=== PATIENT | male | born 1940 | race Caucasian/White ===

== ENCOUNTER 2016-06-09 09:01 | Outpatient (CLI) | payer BC, OTHER | END 2016-06-09 09:02 | disposition home or self-care (01) | DX: I48.0 Paroxysmal atrial fibrillation (principal); E11.9 Type 2 diabetes mellitus without complications; I25.10 Atherosclerotic heart disease of native coronary artery without angina pectoris; I10 Essential (primary) hypertension; E78.5 Hyperlipidemia, unspecified; Z12.5 Encounter for screening for malignant neoplasm of prostate ==

== ENCOUNTER 2016-09-18 10:12 | Outpatient (CLI) | payer BC, MEDICARE, OTHER ==
[2016-09-18 19:19] LABS: BILIRUBIN,TOTAL 0.5 mg/dL (0.2-1.0); BUN - BLOOD UREA NITROGEN 25 mg/dL (6-20); CARBON DIOXIDE - CO2 25 mmol/L (21-32); CHLORIDE 105 mmol/L (101-111); CHOL/HDL RATIO 2.9 (<5.0); CHOLESTEROL 127 mg/dL; CREATININE 1.2 mg/dL (0.6-1.2); GFR - MDRD 59 (>89); GLUCOSE 106 mg/dL (70-100); HDL CHOLESTEROL 44 mg/dL; LDL/HDL RATIO 1.4 (<3.6); SODIUM 138 mmol/L (135-145); TOTAL PROTEIN 7.1 g/dL (6.7-8.2); TRIGLYCERIDES 98 mg/dL; VLDL CHOLESTEROL 20 mg/dL
[2016-09-18 20:10] LABS: HEMOGLOBIN A1C 0.58 g/dL
== END 2016-09-18 10:13 | disposition home or self-care (01) ==
LOC: LAB.F 10:12
PROVIDERS: ATTEND Family Medicine
DX: I48.0 Paroxysmal atrial fibrillation (principal); E11.9 Type 2 diabetes mellitus without complications; I10 Essential (primary) hypertension; Z12.5 Encounter for screening for malignant neoplasm of prostate; I25.10 Atherosclerotic heart disease of native coronary artery without angina pectoris; E78.5 Hyperlipidemia, unspecified
CPT/HCPCS: 36415; 80053; 80061; 83036; G0103; 84153

== ENCOUNTER 2017-03-16 08:00 | Outpatient (CLI) | payer OTHER, MEDICARE, BC | END 2017-03-16 08:01 | disposition home or self-care (01) | LOC: LAB.F 08:00 | PROVIDERS: ATTEND Internal Medicine | DX: E55.9 Vitamin D deficiency, unspecified (principal) | CPT/HCPCS: 36415; 82306 ==

== ENCOUNTER 2017-08-28 13:42 | Outpatient (CLI) | END 2017-08-28 13:43 | disposition home or self-care (01) ==

== ENCOUNTER 2018-02-12 14:09 | Outpatient (CLI) | payer OTHER, MEDICARE, BC ==
[2018-02-12 18:32] LABS: BUN - BLOOD UREA NITROGEN 16 mg/dL (6-20); CALCIUM 10.1 mg/dL (8.5-10.3); CARBON DIOXIDE - CO2 27 mmol/L (21-32); CHLORIDE 105 mmol/L (101-111); CHOL/HDL RATIO 2.4 (<5.0); CHOLESTEROL 133 mg/dL; CREATININE 1.3 mg/dL (0.6-1.2); GFR - MDRD 54 (>89); GLUCOSE 104 mg/dL (70-100); HDL CHOLESTEROL 56 mg/dL; LDL CHOLESTEROL,CALCULATED 61 mg/dL; LDL/HDL RATIO 1.1 (<3.6); SODIUM 138 mmol/L (135-145); VLDL CHOLESTEROL 16 mg/dL
[2018-02-12 18:33] LABS: HB2 TOTAL 16.2 g/dL; HEMOGLOBIN A1C 0.63 g/dL; HEMOGLOBIN A1C % 5.7 % (4.6-6.2)
[2018-02-12 18:41] LABS: CREATININE,URINE 267.2 mg/dL; MICROALBUM/CREATININE RATIO,UR 16.1 ug/mg (<30.0); MICROALBUMIN,URINE 4.3 mg/dL (0-300.0)
== END 2018-02-12 14:10 | disposition home or self-care (01) ==
LOC: LAB.F 14:09
PROVIDERS: ATTEND Family Medicine
DX: E11.9 Type 2 diabetes mellitus without complications (principal)
CPT/HCPCS: 36415; 80048; 80061; 82043; 82570; 83036; 83721

== ENCOUNTER 2020-10-04 16:34 | Outpatient (CLI) | payer OTHER, MEDICARE, BC | END 2020-10-04 16:35 | disposition home or self-care (01) | LOC: COV 16:34 | PROVIDERS: ATTEND Internal Medicine Cardiovascular Disease | DX: Z01.812 Encounter for preprocedural laboratory examination (principal); Z20.822 Contact with and (suspected) exposure to COVID-19 ==

== ENCOUNTER 2021-06-16 14:20 | Outpatient (CLI) | payer MEDICARE, OTHER, BC ==
[2021-06-16 20:00] LABS: BASOPHILS % (AUTO) 0.6 %; EOSINOPHILS # (AUTO) 0.1 10^3/uL (0.0-0.7); EOSINOPHILS % (AUTO) 1.8 %; HCT - HEMATOCRIT 37.3 % (42.0-52.0); HGB - HEMOGLOBIN 12.6 g/dL (14.0-18.0); LYMPHOCYTES # (AUTO) 1.7 10^3/uL (1.5-3.5); LYMPHOCYTES % (AUTO) 32.4 %; MEAN CORPUSCULAR HEMOGLOBIN 34.1 pg (27.0-31.0); MEAN CORPUSCULAR HGB CONC 33.8 g/dL (32.0-36.0); MEAN CORPUSCULAR VOLUME 101.1 fL (80.0-94.0); MONOCYTES # (AUTO) 0.4 10^3/uL (0.0-1.0); MONOCYTES % (AUTO) 8.2 %; NEUTROPHILS # (AUTO) 2.9 10^3/uL (1.5-6.6); NEUTROPHILS % (AUTO) 56.8 %; PLT - PLATELET COUNT 181 10^3/uL (130-450); RED BLOOD COUNT 3.69 10^6/uL (4.70-6.10); RED CELL DISTRIBUTION WIDTH 13.8 % (12.0-15.0); WHITE BLOOD COUNT 5.1 x10^3/uL (4.8-10.8)
[2021-06-16 20:24] LABS: ALBUMIN 4.2 g/dL (3.2-5.5); CALCIUM 10.2 mg/dL (8.5-10.3); CREATININE 1.8 mg/dL (0.6-1.2); POTASSIUM 4.1 mmol/L (3.5-5.0)
== END 2021-06-16 14:21 | disposition home or self-care (01) ==
LOC: LAB.S 14:20
PROVIDERS: ATTEND Internal Medicine Interventional Cardiology
DX: I25.10 Atherosclerotic heart disease of native coronary artery without angina pectoris (principal); I48.0 Paroxysmal atrial fibrillation
CPT/HCPCS: 36415; 80069; 85025

== ENCOUNTER 2021-08-03 13:26 | Outpatient (CLI) | payer OTHER, MEDICARE, BC ==
[2021-08-03 19:57] LABS: BASOPHILS % (AUTO) 0.7 %; EOSINOPHILS % (AUTO) 1.3 %; HCT - HEMATOCRIT 39.3 % (42.0-52.0); HGB - HEMOGLOBIN 12.6 g/dL (14.0-18.0); LYMPHOCYTES % (AUTO) 34.6 %; MEAN CORPUSCULAR HEMOGLOBIN 33.3 pg (27.0-31.0); MEAN CORPUSCULAR HGB CONC 32.1 g/dL (32.0-36.0); MEAN PLATELET VOLUME 11.6 fL (7.4-11.4); MONOCYTES % (AUTO) 9.3 %; NEUTROPHILS % (AUTO) 53.9 %; PLT - PLATELET COUNT 185 10^3/uL (130-450); RED BLOOD COUNT 3.78 10^6/uL (4.70-6.10); RED CELL DISTRIBUTION WIDTH 14.8 % (12.0-15.0); WHITE BLOOD COUNT 4.5 x10^3/uL (4.8-10.8)
[2021-08-03 20:08] LABS: ABNORMAL LYMPHS % (MANUAL) 0 %
[2021-08-03 20:11] LABS: ALBUMIN 4.1 g/dL (3.2-5.5); CALCIUM 10.4 mg/dL (8.5-10.3); CREATININE 1.6 mg/dL (0.6-1.2); INR 1.3 (0.8-1.2); POTASSIUM 4.4 mmol/L (3.5-5.0); PT - PROTHROMBIN TIME 14.9 secs (9.9-12.6)
[2021-08-03 21:07] LABS: BAND NEUTROPHILS % (MANUAL) 1 %; EOSINOPHILS # (MANUAL) 0.1 10^3/uL (0-0.7); LYMPHOCYTES # (MANUAL) 1.2 10^3/uL (1.5-3.5); LYMPHOCYTES % (MANUAL) 23 %; MONOCYTES # (MANUAL) 0.2 10^3/uL (0.0-1.0); RBC MORPHOLOGY (MULTIPLE) 1+ MACROCYTOSIS (NORMAL); REACTIVE LYMPHS % (MANUAL) 4 %
[2021-08-03 21:08] LABS: DIFFERENTIAL COMMENT MANUAL DIFFERENTIAL; PLATELET ESTIMATE, MANUAL NORMAL (130-450,000) (NORMAL); PLATELET MORPHOLOGY NORMAL APPEARANCE (NORMAL); WBC MORPHOLOGY (MULTIPLE) NORMAL APPEARANCE (NORMAL)
== END 2021-08-03 13:27 | disposition home or self-care (01) ==
LOC: LAB.S 13:26
PROVIDERS: ATTEND Internal Medicine Cardiovascular Disease
DX: I48.0 Paroxysmal atrial fibrillation (principal)
CPT/HCPCS: 36415; 80069; 85025; 85610

== ENCOUNTER 2021-08-18 12:03 | Outpatient (CLI) | payer OTHER, MEDICARE, BC | END 2021-08-18 12:04 | disposition home or self-care (01) | LOC: LAB.S 12:03 | PROVIDERS: ATTEND Internal Medicine | DX: A04.8 Other specified bacterial intestinal infections (principal) ==

== ENCOUNTER 2021-08-22 08:00 | Outpatient (CLI) | payer OTHER, MEDICARE, BC ==
[2021-08-22 20:56] LABS: H. PYLORIS ANTIGEN STL NEGATIVE (Negative)
== END 2021-08-22 23:59 | disposition home or self-care (01) ==
LOC: LAB.R 08:00
DX: A04.8 Other specified bacterial intestinal infections (principal)
CPT/HCPCS: 87338

== ENCOUNTER 2021-09-30 09:37 | Outpatient (CLI) | payer OTHER, MEDICARE, BC ==
[2021-09-30 15:19] LABS: ALBUMIN 3.2 g/dL (3.2-5.5); ALBUMIN/GLOBULIN RATIO 0.5 (1.0-2.2); BILIRUBIN,TOTAL 0.7 mg/dL (0.2-1.0); CALCIUM 10.3 mg/dL (8.5-10.3); CREATININE 6.5 mg/dL (0.6-1.2); POTASSIUM 4.6 mmol/L (3.5-5.0)
== END 2021-09-30 09:38 | disposition home or self-care (01) ==
LOC: LAB.S 09:37
PROVIDERS: ATTEND Nurse Practitioner Family
DX: I10 Essential (primary) hypertension (principal); R53.83 Other fatigue; I48.0 Paroxysmal atrial fibrillation; I25.10 Atherosclerotic heart disease of native coronary artery without angina pectoris; E78.5 Hyperlipidemia, unspecified; E11.9 Type 2 diabetes mellitus without complications; Z82.49 Family history of ischemic heart disease and other diseases of the circulatory system
CPT/HCPCS: 36415; 80053; 84443

== ENCOUNTER 2022-01-22 11:58 | Emergency (ER) | payer OTHER, MEDICARE, BC ==
[2022-01-22 13:01] LABS: BASOPHILS % (AUTO) 0.1 %; EOSINOPHILS % (AUTO) 0.1 %; HCT - HEMATOCRIT 20.6 % (42.0-52.0); LYMPHOCYTES % (AUTO) 38.3 %; MEAN CORPUSCULAR HEMOGLOBIN 36.8 pg (27.0-31.0); MEAN CORPUSCULAR HGB CONC 32.5 g/dL (32.0-36.0); MEAN CORPUSCULAR VOLUME 113.2 fL (80.0-94.0); MEAN PLATELET VOLUME 11.1 fL (7.4-11.4); NEUTROPHILS % (AUTO) 24.6 %; PLT - PLATELET COUNT 90 10^3/uL (130-450); RED BLOOD COUNT 1.82 10^6/uL (4.70-6.10); RED CELL DISTRIBUTION WIDTH 17.7 % (12.0-15.0); WHITE BLOOD COUNT 11.6 x10^3/uL (4.8-10.8)
[2022-01-22 13:05] LABS: HGB - HEMOGLOBIN 6.7 g/dL (14.0-18.0); INR 1.1 (0.8-1.2); PT - PROTHROMBIN TIME 12.8 secs (9.9-12.6)
[2022-01-22 13:06] LABS: ABNORMAL LYMPHS % (MANUAL) 0 %
[2022-01-22 13:31] LABS: ALBUMIN/GLOBULIN RATIO 0.4 (1.0-2.2); BILIRUBIN,TOTAL 0.6 mg/dL (0.2-1.0); CALCIUM 10.5 mg/dL (8.5-10.3); TOTAL PROTEIN 11.4 g/dL (6.7-8.2)
[2022-01-22 13:32] LABS: CREATININE 7.4 mg/dL (0.6-1.2)
[2022-01-22] MEDS ORDERED: SODIUM CHLORIDE 0.9% 1,000 ML IV STA (13:44)
[2022-01-22 13:45] LABS: BAND NEUTROPHILS % (MANUAL) 3 %; DIFFERENTIAL COMMENT MANUAL DIFFERENTIAL; EOSINOPHILS # (MANUAL) 0.1 10^3/uL (0-0.7); LYMPHOCYTES % (MANUAL) 26 %; MONOCYTES # (MANUAL) 0.6 10^3/uL (0.0-1.0); NEUTROPHILS # (MANUAL) 2.7 10^3/uL (1.5-6.6); NUCLEATED RBC (MANUAL) 1 %; OTHER CELLS % (MANUAL) 30 %; PLASMA CELLS % (MANUAL) 15 %; RBC MORPHOLOGY (MULTIPLE) 3+ ANISOCYTOSIS (NORMAL); SLIDE SENT FOR PATH REVIEW? Indicated
[2022-01-22] MEDS ORDERED: LIDOCAINE-EPINEPH-TETRACAINE 3 ML SYRINGE TOP STA (13:45)
[2022-01-22] MEDS ORDERED: SILVER NITRATE APPLICATOR TOP STA ×2 (13:46→16:35)
[2022-01-22 18:21] VITALS: BP 135/72
--- NOTE | 2022-01-22 18:38 | ED Physician Documentation ---
PD HPI HEENT - Stated complaint Stated Complaint: DIZZINESS,BLOODY NOSE - Chief complaint Chief Complaint: General - History obtained from History obtained from: Patient, Family (daughter) - History of Present Illness Timing - onset: How many days ago (few days of increasing weakness generally. has had intermittent bloody nose both sides, lasting minutes at a time. no noted injury. History of anemia and concerned lower. no uri symptoms per se.) Timing - duration: Days Timing - details: Gradual onset, Still present Location: Nose (has noted nosebleeds out front of nose intermittently for several days.) Associated symptoms: No: Fever, Congestion, Headache, Cough Similar symptoms before: Diagnosis (has had weakness with low blood count or illness in recent past.) Recently seen: Clinic (has been to PMD and Urologist recently. Has appt tomorrow with through freight engineer to get dialysis catheter placed and to start dialysis this week. seeing Hem/onc Dr. 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 has also kidney tumor.) Review of Systems Constitutional: denies: Fever, Chills, Myalgias Nose: denies: Rhinorrhea / runny nose, Congestion Throat: denies: Sore throat Cardiac: denies: Chest pain / pressure, Palpitations, Pedal edema, Calf pain Respiratory: reports: Dyspnea. denies: Cough GI: reports: Abdominal Pain (bladder and left kidney area for month or more.). denies: Nausea, Vomiting, Diarrhea, Bloody / black stool Neurologic: reports: Generalized weakness. denies: Focal weakness, Numbness, Difficulty speaking, Confused PD PAST MEDICAL HISTORY - Past Medical History Past Medical History: Yes Cardiovascular: Hypertension, High cholesterol, ID Endocrine/Autoimmune: Type 2 diabetes GI: Ulcerative colitis : Other (kidney tumor) Other Past Medical History: blood cancer (a type of multiple myeloma). history of anemia due to blood loss and iron deficiency. - Past Surgical History Past Surgical History: Yes - Present Medications Home Medications: Ambulatory Orders Medication Instructions Recorded Confirmed Amiodarone [Pacerone] 200 mg PO DAILY 09/16/13 09/16/13 Aspirin [Carlo Chewable Aspirin] 81 mg PO DAILY 09/16/13 09/16/13 Atorvastatin Calcium [Lipitor] 80 mg PO DAILY 09/16/13 09/16/13 Folic Acid 1 mg PO DAILY 09/16/13 09/16/13 Metoprolol Tartrate 50 mg PO BID 09/16/13 09/16/13 Olmesartan Medoxomil [Benicar] 40 mg PO DAILY 09/16/13 09/16/13 Sulfasalazine [Sulfasalazine Dr] 500 mg PO DAILY 09/16/13 09/16/13 Tamsulosin [Flomax] 0.4 mg PO DAILY 09/16/13 09/16/13 allopurinoL [Allopurinol] 300 mg PO DAILY 09/16/13 09/16/13 diazePAM [Valium] 5 mg PO TID PRN #15 tablet 09/16/13 metFORMIN [Glucophage] 500 mg PO DAILY 09/16/13 09/16/13 oxyCODONE [Roxicodone] 10 mg PO Q4-6H PRN #15 tablet 09/16/13 - Allergies Allergies/Adverse Reactions: Allergies Allergy/AdvReac Type Severity Reaction Status Date / Time No Known Drug Allergies Allergy Verified 01/22/22 12:39 - Social History Does the pt smoke?: No Smoking Status: Never smoker Does the pt have substance abuse?: No - Immunizations Immunizations are current?: Yes PD ED PE NORMAL - Vitals Vital signs reviewed: Yes (mildly hypotensive. ) - General General: Alert and oriented X 3, No acute distress, Well developed/nourished - HEENT HEENT: Pharynx benign, Other (both nares medial wall with visible area of surface vessel inflammation and pointing with clot in place. no bleeding currently. ) - Neck Neck: Supple, no meningeal sign, No adenopathy - Cardiac Cardiac: RRR, No murmur - Respiratory Respiratory: Clear bilaterally - Abdomen Abdomen: Normal bowel sounds, Soft, Non distended, No organomegaly Results - Vitals Vitals: Vital Signs - 24 hr 01/22/22 01/22/22 01/22/22 12:33 12:38 13:26 Temperature 36.4 C L 36.5 C Heart Rate 77 77 82 Heart Rate [ Monitoring electrodes] Respiratory 16 16 18 Rate Blood Pressure 98/53 L 98/53 L 122/82 H Blood Pressure [Right Brachial artery] O2 Saturation 100 100 100 01/22/22 01/22/22 01/22/22 15:22 15:26 15:35 Temperature 36.7 C 36.5 C 36.5 C Heart Rate 86 80 Heart Rate [ 87 Monitoring electrodes] Respiratory 20 16 17 Rate Blood Pressure 134/70 H 135/79 H Blood Pressure 128/83 H [Right Brachial artery] O2 Saturation 100 100 100 01/22/22 01/22/22 01/22/22 15:47 16:56 17:00 Temperature 36.5 C 36.5 C 36.5 C Heart Rate 74 Heart Rate [ 80 80 Monitoring electrodes] Respiratory 14 18 12 Rate Blood Pressure 130/72 Blood Pressure 135/81 H 133/70 H [Right Brachial artery] O2 Saturation 100 98 100 01/22/22 01/22/22 18:20 18:44 Temperature 36.6 C Heart Rate Heart Rate [ 76 Monitoring electrodes] Respiratory 16 Rate Blood Pressure Blood Pressure 135/72 H [Right Brachial artery] O2 Saturation 100 100 Oxygen O2 Source Room air - Labs Labs: Laboratory Tests 01/22/22 01/22/22 01/22/22 12:54 12:54 12:54 WBC 11.6 H RBC 1.82 L Hgb 6.7 L* Hct 20.6 L MCV 113.2 H MCH 36.8 H MCHC 32.5 RDW 17.7 H Plt Count 90 L MPV 11.1 Neut # (Auto) Not Reportable Lymph # (Auto) Not Reportable [place] # (Auto) Not Reportable Eos # (Auto) Not Reportable Baso # (Auto) Not Reportable Absolute Nucleated RBC Not Reportable Total Counted 100 Band Neuts % (Manual) 3 Abnorm Lymph % (Manual) 0 Plasma Cell % (Manual) 15 Other Cells % 30 Nucleated RBC % Not Reportable Neutrophils # (Manual) 2.7 Lymphocytes # (Manual) 3.0 Monocytes # (Manual) 0.6 Eosinophils # (Manual) 0.1 Basophils # (Manual) 0.0 Nucleated RBCs 1 Differential Comment MANUAL DIFFERENTIAL RBC Morph Micro Appear 3+ ANISOCYTOSIS PT 12.8 H INR 1.1 Sodium Potassium Chloride Carbon Dioxide Anion Gap BUN Creatinine Estimated GFR (MDRD) Glucose Calcium Total Bilirubin AST ALT Alkaline Phosphatase Total Protein Albumin Globulin Albumin/Globulin Ratio Lipase Slides for Path Review Indicated Blood Type O POSITIVE Blood Type Recheck Antibody Screen NEGATIVE Crossmatch IS Only See Detail 01/22/22 01/22/22 12:54 14:53 WBC RBC Hgb Hct MCV MCH MCHC RDW Plt Count MPV Neut # (Auto) Lymph # (Auto) [place] # (Auto) Eos # (Auto) Baso # (Auto) Absolute Nucleated RBC Total Counted Band Neuts % (Manual) Abnorm Lymph % (Manual) Plasma Cell % (Manual) Other Cells % Nucleated RBC % Neutrophils # (Manual) Lymphocytes # (Manual) Monocytes # (Manual) Eosinophils # (Manual) Basophils # (Manual) Nucleated RBCs Differential Comment RBC Morph Micro Appear PT INR Sodium 133 L Potassium 5.0 Chloride 108 Carbon Dioxide 17 L Anion Gap 8.0 BUN 67 H Creatinine 7.4 H* Estimated GFR (MDRD) 7 L Glucose 85 Calcium 10.5 H Total Bilirubin 0.6 AST 36 ALT 52 Alkaline Phosphatase 66 Total Protein 11.4 H Albumin 3.0 L Globulin 8.4 H Albumin/Globulin Ratio 0.4 L Lipase 49 Slides for Path Review Blood Type Blood Type Recheck O POSITIVE Antibody Screen Crossmatch IS Only PD MEDICAL DECISION MAKING - ED course Complexity details: reviewed old records, reviewed results, considered differential (patient and daughter had 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 Main focus/goal of ER visit is to get blood transfusion to help with dyspnea and general weakness/bp. He is seeing specialists tomorrow and next day, and is starting dialysis later this week. Is not needing much further workup.), d/w patient, d/w family (daughter) Departure - Departure Disposition: 01 Home, Self Care Clinical Impression: Anterior epistaxis, Anemia, Generalized weakness, Renal failure, chronic Condition: Stable Record reviewed to determine appropriate education?: Yes Comments: Your hemoglobin level here was 6.7. We transfused 1 unit of rack red blood cells. That should have you above the level of 7 which is the recommended guidelines for transfusion. Your kidney function is poor as you already know. Your creatinine level was 7.4 here today. Follow-up with your specialists over the next couple of days as planned, including your through freight engineer, and the hematology/occupational therapy specialist. Regarding your nosebleed, I did cauterize spots on both nares/nostrils that had been bleeding. I used silver nitrate to those areas. I would suggest using some ointment such as Vaseline or bacitracin or such gently with a Q-tip rolled on each nostril area to keep it moisturized and protected as they heal. No firm nose blowing for a day or 2. These should heal without any problems. Continue your usual medications. Stay well-hydrated as typically recommended by your through freight engineer. I assume low-protein/ renal diet. Discharge Date/Time: 01/22/22 18:55
[2022-01-25 11:21] LABS: PATHOLOGIST SLIDE COMMENTS SEE SEPARATE REPORT
== END 2022-01-22 18:55 | disposition home or self-care (01) ==
LOC: ED 11:58
DX: R04.0 Epistaxis (principal); D64.9 Anemia, unspecified; R53.1 Weakness; E11.22 Type 2 diabetes mellitus with diabetic chronic kidney disease; I12.9 Hypertensive chronic kidney disease with stage 1 through stage 4 chronic kidney disease, or unspecified chronic kidney disease; N18.9 Chronic kidney disease, unspecified; Z79.84 Long term (current) use of oral hypoglycemic drugs
CPT/HCPCS: 36415; 36430; 80053; 83690; 85025; 85610; 86850; 86900; 86901; 86920; 99284; 99285; P9016

== ENCOUNTER → 2022-02-16 | Outpatient (CLI) | payer OTHER, MEDICARE, BC | END | disposition short-term general hospital (02) | LOC: EMS 04:47 | DX: S09.92XA Unspecified injury of nose, initial encounter (principal); S50.312A Abrasion of left elbow, initial encounter; W18.39XA Other fall on same level, initial encounter; Y93.01 Activity, walking, marching and hiking; Y92.003 Bedroom of unspecified non-institutional (private) residence as the place of occurrence of the external cause; R53.1 Weakness; R42 Dizziness and giddiness; R40.4 Transient alteration of awareness; E16.2 Hypoglycemia, unspecified; Z99.2 Dependence on renal dialysis | CPT/HCPCS: A0425; A0427 ==

== ENCOUNTER 2022-03-03 23:31 | Outpatient (CLI) | payer OTHER, MEDICARE, BC | END 2022-03-03 23:59 | disposition EMS.NT | LOC: EMS 23:31 | DX: E11.649 Type 2 diabetes mellitus with hypoglycemia without coma (principal) ==

== ENCOUNTER 2022-03-04 08:41 | Outpatient (CLI) | payer OTHER, MEDICARE, BC | END 2022-03-04 08:42 | disposition EMS.NT | LOC: EMS 08:41 | DX: E11.649 Type 2 diabetes mellitus with hypoglycemia without coma (principal) ==

== ENCOUNTER 2022-03-19 16:03 | Outpatient (CLI) | payer MEDICARE, BC | END 2022-03-19 16:04 | disposition short-term general hospital (02) | LOC: EMS 16:03 | DX: R06.02 Shortness of breath (principal); R53.1 Weakness; R47.81 Slurred speech; I48.91 Unspecified atrial fibrillation | CPT/HCPCS: A0425; A0427 ==